=== PATIENT | female | born 1990 ===

== ENCOUNTER 2018-10-15 20:18 | Emergency (ER) | payer SELFPAY ==
[2018-10-15 21:52] VITALS: RESP 18; O2SAT 99
--- NOTE | 2018-10-15 23:48 | ED PDOC ---
HPI: Abdomen Time Seen by Provider: 10/15/18 23:29 Chief Complaint (Nursing): Abdominal Pain Chief Complaint (Provider): abdominal pain History Per: Patient History/Exam Limitations: no limitations Onset/Duration Of Symptoms: Days, Waxing/Waning Current Symptoms Are (Timing): Still Present Additional Complaint(s): 27 y/o female presents for evaluation of abdominal pain x 3 days, worse today. Associated headache, which has since improved after taking Advil. Denies fever, nausea/vomiting, chest pain, shortness of breath, palpitations, changes in bowel movements, urinary symptoms, vaginal bleeding/discharge. Past Medical History Reviewed: Historical Data, Nursing Documentation, Vital Signs Vital Signs: Last Vital Signs Temp 97.8 F 10/15/18 21:50 Pulse 71 10/15/18 21:50 Resp 18 10/15/18 21:50 BP 125/62 10/15/18 21:50 Pulse Ox 99 10/15/18 21:50 - Medical History PMH: No Chronic Diseases - Surgical History Surgical History: - Family History Family History: States: Unknown Family Hx - Living Arrangements Living Arrangements: With Family - Immunization History Hx Tetanus Toxoid Vaccination: Yes Hx Influenza Vaccination: Yes Hx Pneumococcal Vaccination: No - Home Medications Home Medications: Ambulatory Orders Medication Instructions Recorded No Known Home Med 07/08/18 - Allergies Allergies/Adverse Reactions: Allergies Allergy/AdvReac Type Severity Reaction Status Date / Time No Known Allergies Allergy Verified 10/15/18 21:50 Review of Systems ROS Statement: Except As Marked, All Systems Reviewed And Found Negative Gastrointestinal: Positive for: Abdominal Pain Physical Exam - Reviewed Nursing Documentation Reviewed: Yes Vital Signs Reviewed: Yes - Physical Exam Appears: Positive for: Well, Non-toxic, No Acute Distress Head Exam: Positive for: ATRAUMATIC, NORMAL INSPECTION, NORMOCEPHALIC Skin: Positive for: Normal Color Eye Exam: Positive for: Normal appearance ENT: Positive for: Normal ENT Inspection Cardiovascular/Chest: Positive for: Regular Rate, Rhythm Respiratory: Positive for: Normal Breath Sounds Gastrointestinal/Abdominal: Positive for: Bowel Sounds, Soft, Tenderness (franny-umbilical) Back: Positive for: Normal Inspection Extremity: Positive for: Normal ROM Neurologic/Psych: Positive for: Alert, Oriented (x3) - Laboratory Results Result Diagrams: 10/16/18 00:36 10/16/18 00:36 - ECG O2 Sat by Pulse Oximetry: 99 - Progress ED Course And Treament: -upreg -udip -cbc -cmp -urinalysis -CT abd/pelvis with IV contrast -abd/pelvis CT CT SCAN OF THE ABDOMEN AND PELVIS WITH CONTRAST. CLINICAL HISTORY: Periumbilical pain. TECHNIQUE: Multiple axial and coronal CT images were obtained through the abdomen and pelvis after administration of intravenous contrast material. COMMENTS: The liver is of uniform attenuation without mass or defect. There is no intra or extrahepatic biliary ductal dilatation. The spleen is normal. The gallbladder is within normal limits. The pancreas is of normal contour and attenuation characteristics. There is no evidence of adrenal mass. 4 mm left renal nonobstructing stone. Mildly prominent central mesenteric lymph nodes. Both kidneys demonstrate prompt and equal nephrograms. The kidneys are normal in size, shape and configuration. There is no evidence of renal or ureteral mass. No renal or ureteral calculi are identified. There is no hydroureter or hydronephrosis. No evidence for appendicitis. There is no bowel wall thickening. No evidence for small or large bowel obstruction. There is no evidence of abdominal ascites or lymphadenopathy. There is no evidence of intrinsic or extrinsic bladder mass. There is no pelvic ascites or lymphadenopathy. Mild diffuse thickening of the bladder. Images of the lung bases show no evidence of pleural or parenchymal mass. There are no pleural effusions. The bony structures are free of lytic or blastic lesions. IMPRESSION: 4 mm left renal nonobstructing stone. Mildly prominent central mesenteric lymph nodes. Pannivulitis versus mild mesenteric adenitis. Diffuse thickening of the bladder, probably cystitis. Thank you for your kind referral of this patient. Patient educated on findings, discharged with instructions to follow up with PMD within 2-3 days Advised tylenol/Ibuprofen PRN pain Return precautions given Disposition - Clinical Impression Clinical Impression: Abdominal pain - Patient ED Disposition Is Patient to be Admitted: No Counseled Patient/Family Regarding: Studies Performed, Diagnosis, Need For Followup - Disposition Referrals: [facility] [Outside] Disposition: Routine/Home Disposition Time: 03:00 Condition: IMPROVED Instructions: Acute Abdomen (Belly Pain)
[2018-10-16] MEDS ORDERED: Sodium Chloride 0.9% 1,000 ML IV STA (00:18)
[2018-10-16 00:54] LABS: BASO # 0.1 K/uL (0.0-0.2); BASO % 0.6 % (0.0-2.0); EOS # 0.1 K/uL (0.0-0.7); EOS % 1.2 % (0.0-4.0); HEMOGLOBIN 12.9 g/dL (12.0-16.0); LYMPH # 2.6 K/uL (1.0-4.3); LYMPH % 23.1 % (20.0-40.0); MEAN CORPUSCULAR HEMOGLOBIN 30.8 pg (27.0-31.0); MEAN CORPUSCULAR HGB CONC 33.1 g/dL (33.0-37.0); MEAN PLATELET VOLUME 8.4 fl (7.2-11.7); MONO # 0.8 K/uL (0.0-0.8); MONO % 7.2 % (0.0-10.0); NEUT # 7.7 K/uL (1.8-7.0); NEUT % 67.9 % (50.0-75.0); RBC 4.19 Mil/uL (3.80-5.20); RED CELL DISTRIBUTION WIDTH 13.8 % (11.5-14.5); WHITE BLOOD COUNT 11.4 K/uL (4.8-10.8)
[2018-10-16 00:59] LABS: SQUAMOUS EPITHIAL 30 /hpf (0-5); URINE BILIRUBIN NEGATIVE (NEGATIVE); URINE BLOOD NEGATIVE (NEGATIVE); URINE CLARITY CLOUDY (Clear); URINE COLOR YELLOW (YELLOW); URINE GLUCOSE (UA) NEG (NEGATIVE); URINE LEUKOCYTE ESTERASE NEG Leu/uL (Negative); URINE PROTEIN NEGATIVE (NEGATIVE)
[2018-10-16 01:18] LABS: ALB/GLOB RATIO 1.3 (1.0-2.1); ALBUMIN 4.1 g/dL (3.5-5.0); ALT/SGPT 22 U/L (9-52); AST/SGOT 26 U/L (14-36); BLOOD UREA NITROGEN 16 mg/dl (7-17); CALCIUM 9.1 mg/dL (8.4-10.2); GFR NON-AFRICAN AMERICAN > 60
[2018-10-16] MEDS ORDERED: Iohexol 300 100 ML IJ ONE (01:40)
[2018-10-16] MEDS ORDERED: Sodium Chloride 0.9% 50 ML IV ONE (01:41)
--- NOTE | 2018-10-16 09:18 | CT ---
Date of service: 10/16/2018 PROCEDURE: CT Abdomen and Pelvis with contrast HISTORY: periumbilical pain COMPARISON: None. TECHNIQUE: Following the intravenous administration of iodinated contrast material, a CT examination of the abdomen and pelvis was performed from the domes of the diaphragms to the symphysis pubis with reformatted datasets provided in axial, sagittal and coronal planes. Oral contrast was not administered as per referring physician request. Contrast dose: Omnipaque 300, 90 cc Radiation dose: Total exam DLP = 753.16 mGy-cm. This CT exam was performed using one or more of the following dose reduction techniques: Automated exposure control, adjustment of the mA and/or kV according to patient size, and/or use of iterative reconstruction technique. FINDINGS: LOWER THORAX: 3 mm noncalcified nodule seen the right lower lobe in 12 series 5 with a 3 mm nodule subpleural in image 23 series 5 at the left lower lobe. Lung bases are otherwise unremarkable bilaterally. LIVER: Unremarkable. No gross lesion or ductal dilatation. GALLBLADDER AND BILE DUCTS: Unremarkable. PANCREAS: Unremarkable. No gross lesion or ductal dilatation. SPLEEN: Unremarkable. ADRENALS: Unremarkable. No mass. KIDNEYS AND URETERS: Unremarkable. No hydronephrosis. No solid mass. VASCULATURE: Unremarkable. No aortic aneurysm. No aortic atherosclerotic calcification or mural plaque present. BOWEL: The stomach is collapsed. No bowel obstruction identified. There is a mild amount retained fecal material scattered throughout various large-bowel segments. No gross mural thickening appreciated throughout the bowel. APPENDIX: Normal appendix. PERITONEUM: There is no ascites or mesenteric edema. Shotty central mesenteric lymph nodes are identified as well as in the pericecal space suspicious for possible mesenteric adenitis. Shotty periaortic lymph nodes are identified in addition, of uncertain etiology. BLADDER: Bladder is largely decompressed with wall poorly evaluated. Cystitis is not favored but is difficult to completely exclude. REPRODUCTIVE: Unremarkable. BONES: No acute fracture. OTHER FINDINGS: None. IMPRESSION: 1. No bowel obstruction, mesenteric edema, ascites or free intra peritoneal gas collection identified. 2. Potential mesenteric adenitis. No local reactive changes identified in central mesentery. 3. The urinary bladder is largely decompressed limiting evaluation the wall. Cystitis is not favored but is difficult to completely exclude. Concordant preliminary report from [place], 10/16/2018, 2:19 a.m..
[2018-10-16 21:32] VITALS: BP 122/60; PULSE 76; TEMP 98.2
== END 2018-10-16 03:30 | disposition home or self-care (01) ==
LOC: H.ER 20:18
DX: R10.9 Unspecified abdominal pain (principal)
CPT/HCPCS: 74177; 80053; 81003; 81025; 85025; 87086; 99284; J1885; J7030; Q9967